=== PATIENT | female | born 1985 | race Caucasian/White ===

== ENCOUNTER 2016-06-29 13:41 | Emergency (ER) | payer OTHER ==
[~2016-06-29] VITALS: Wt 71.0 kg
[2016-06-29] MEDS ORDERED: IBUP800T25 PO (14:13)
[2016-06-29] MEDS ORDERED: SILV20CR14 TOP (14:13)
[2016-06-29] MEDS ORDERED: ONDA4TAB14 PO (14:13)
[2016-06-29] MEDS ORDERED: HYDR-902 PO (14:13)
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
[2016-06-29] MEDS ORDERED: SILVER SULFADIAZINE 1% 25 GM CR TOP ONE (14:30)
[2016-06-29] MEDS ORDERED: IBUPROFEN 800 MG TAB PO ONE (14:30)
== END 2016-06-29 14:36 | disposition home or self-care (01) ==
LOC: FTE 13:41
DX: T23.232A Burn of second degree of multiple left fingers (nail), not including thumb, initial encounter (principal); X19.XXXA Contact with other heat and hot substances, initial encounter; Y92.9 Unspecified place or not applicable